=== PATIENT | female | born 1995 | race Caucasian/White ===

== ENCOUNTER 2018-01-23 22:22 | Emergency (ER) | payer OTHER ==
[~2018-01-23] VITALS: Ht 175.3 cm; Wt 73.9 kg
[2018-01-23 23:21] LABS: HEMATOCRIT 35.4 % (36.0-46.0); MCHC 36.7 G/DL (30.0-36.0); MCV 87.2 FL (83-99); PLATELET COUNT 133 K/uL (156-360); RBC DIS.WIDTH-CV 11.9 % (11.8-14.6); RBC DIS.WIDTH-SD 37.7 % (39-53); RED BLOOD COUNT 4.06 M/uL (3.80-5.20); WHITE BLOOD COUNT 10.2 K/uL (4.1-10.2)
[2018-01-23 23:35] LABS: CHLORIDE 106 mEq/L (99-109); POTASSIUM 3.8 mEq/L (3.7-5.4); SODIUM 137 mEq/L (136-147)
[2018-01-23 23:37] LABS: GLUCOSE 80 mg/dL (70-99)
[2018-01-23 23:41] LABS: CREATININE 0.6 mg/dL (0.6-1.3)
[2018-01-23 23:42] LABS: UREA NITROGEN (BUN) 6 mg/dL (9-23)
[2018-01-23 23:45] LABS: GFR ESTIMATE (CALCULATED) > 59 mL/min/
[2018-01-23 23:47] LABS: TROP-I INTERPRETATION NEGATIVE; TROPONIN-I < 0.01 ng/mL (0.0-0.30)
[2018-01-24 01:34] VITALS: BP 119/73
== END 2018-01-24 01:53 | disposition home or self-care (01) ==
LOC: EME 22:22
DX: O26.893 Other specified pregnancy related conditions, third trimester (principal); R07.81 Pleurodynia; R07.89 Other chest pain; Z3A.30 30 weeks gestation of pregnancy
CPT/HCPCS: 71045; 80048; 84484; 85027; 93005; 99281; 99284

== ENCOUNTER 2018-03-22 05:37 | Inpatient (IN) | payer OTHER ==
[~2018-03-22] VITALS: Ht 175.3 cm; Wt 78.5 kg
[~2018-03-22 05:37] MED LIST: PRENATAL TABLE1 EAC3 PO
[2018-03-22 06:19] LABS: BASOPHIL (%) 0.3 % (0-1); EOSINOPHIL (%) 1.1 % (0-5); EOSINOPHIL COUNT 0.1 K/uL (0-0.3); HEMATOCRIT 36.2 % (36.0-46.0); HEMOGLOBIN 13.3 G/DL (11.9-15.5); IMMATURE GRANULOCYTE (%) 0.6 % (0.0-0.7); LYMPHOCYTE (%) 29.7 % (15-42); LYMPHOCYTE COUNT 2.4 K/uL (1.0-2.8); MCH 31.7 PG (29.0-34.0); MCHC 36.7 G/DL (30.0-36.0); MCV 86.4 FL (83-99); MONOCYTE (%) 6.1 % (3-12); MONOCYTE COUNT 0.5 K/uL (0-0.8); NEUTROPHIL (%) 62.2 % (45-76); PLATELET COUNT 161 K/uL (156-360); RBC DIS.WIDTH-CV 12.6 % (11.8-14.6); RBC DIS.WIDTH-SD 39.3 % (39-53); RED BLOOD COUNT 4.19 M/uL (3.80-5.20)
[2018-03-22] MEDS ORDERED: TUMS500 MG PO (06:35)
[2018-03-22 06:39] LABS: AMPHETAMINE NEGATIVE (500 ng/mL); BARBITURATES NEGATIVE (200 ng/mL); BENZODIAZEPINES NEGATIVE (150 ng/mL); BUPRENORPHINE NEGATIVE (10 ng/mL); COCAINE NEGATIVE (150 ng/mL); METHADONE NEGATIVE (200 ng/mL); METHAMPHETAMINE NEGATIVE (500 ng/mL); OPIATES (MORPHINE) NEGATIVE (100 ng/mL); OXYCODONE NEGATIVE (100 ng/mL); PHENCYCLIDINE NEGATIVE (25 ng/mL); PROPOXYPHENE NEGATIVE (300 ng/mL); THC CANNABINOIDS NEGATIVE (50 ng/mL); TRICYCLIC ANTIDEPRESSANTS NEGATIVE (300 ng/mL)
[2018-03-22] MEDS ORDERED: ENDOCET 5-3251 EACH PO (08:50)
[2018-03-22] MEDS ORDERED: IBUPROFEN800 MG PO (08:50)
[2018-03-22 10:21] VITALS: BP 141/79
[2018-03-22 19:52] VITALS: BP 115/59
[2018-03-22 23:40] VITALS: BP 109/58
[2018-03-23 02:41] VITALS: BP 120/55
[2018-03-23 06:33] LABS: PLAT.SUFFICIENCY VERY DECREASED
[2018-03-23 06:45] LABS: BASOPHIL (%) 0.2 % (0-1); EOSINOPHIL (%) 0.6 % (0-5); EOSINOPHIL COUNT 0.1 K/uL (0-0.3); HEMATOCRIT 24.3 % (36.0-46.0); IMMATURE GRANULOCYTE (%) 0.6 % (0.0-0.7); LYMPHOCYTE (%) 23.4 % (15-42); LYMPHOCYTE COUNT 1.9 K/uL (1.0-2.8); MCH 31.3 PG (29.0-34.0); MCHC 35.4 G/DL (30.0-36.0); MCV 88.4 FL (83-99); MONOCYTE (%) 5.6 % (3-12); MONOCYTE COUNT 0.5 K/uL (0-0.8); NEUTROPHIL (%) 69.6 % (45-76); NEUTROPHIL COUNT 5.6 K/uL (1.8-6.4); RBC DIS.WIDTH-CV 12.9 % (11.8-14.6); RBC DIS.WIDTH-SD 41.3 % (39-53); WHITE BLOOD COUNT 8.1 K/uL (4.1-10.2)
[2018-03-23 06:46] LABS: HEMOGLOBIN 8.6 G/DL (11.9-15.5); PLATELET COUNT 109 K/uL (156-360); RED BLOOD COUNT 2.75 M/uL (3.80-5.20)
[2018-03-23 19:34] VITALS: BP 135/74
[2018-03-23 22:33] VITALS: BP 120/68
[2018-03-24 02:15] VITALS: BP 134/66
[2018-03-24] MEDS ORDERED: HYDROCODON-ACE1 EAC7 PO (10:59)
[2018-03-24] MEDS ORDERED: FERROUS SULFAT325 MG PO (11:00)
== END 2018-03-24 14:15 | disposition home or self-care (01) | DRG 766 ==
LOC: 2WEST 05:37 → 2SOUTH 10:06 → 2WEST 03-24 14:15
PROVIDERS: Obstetrics & Gynecology Obstetrics
PROC: 10D00Z1 Extraction of Products of Conception, Low, Open Approach (ICD-10-PCS; principal; 2018-03-22)
DX: O34.211 Maternal care for low transverse scar from previous cesarean delivery (principal); O99.344 Other mental disorders complicating childbirth; O34.03 Maternal care for unspecified congenital malformation of uterus, third trimester; O90.81 Anemia of the puerperium; Q51.3 Bicornate uterus; Z3A.39 39 weeks gestation of pregnancy; F32.9 Major depressive disorder, single episode, unspecified; F41.9 Anxiety disorder, unspecified; O62.2 Other uterine inertia; D64.9 Anemia, unspecified; Z37.0 Single live birth; F43.10 Post-traumatic stress disorder, unspecified; Z87.440 Personal history of urinary (tract) infections; Z87.891 Personal history of nicotine dependence
CPT/HCPCS: 85025; 86850; 86870; 86900; 86901; 86905; 86920; J0131; J0690; J1200; J1885; J2210; J2274; J3010; J7120; S0020